=== PATIENT | female | born 1955 | race American Indian/Alaskan Native ===

== ENCOUNTER 2017-01-15 10:49 | Emergency (ER) | payer BC, OTHER ==
--- NOTE | 2017-01-15 11:09 | Emergency Department Report ---
Chief Complaint: Extremity Injury, Upper Stated Complaint: LFT ARM NUMBNESS Time Seen by Provider: 01/15/17 11:01 - HPI History of Present Illness: 61-year-old -[place] female with a past medical history of hypertension diabetes hypothyroidism and vitamin B12 deficiency comes in today for left arm pain that started 1 week ago and is progressively getting worse. 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 She reports that the left arm was a little weak this morning as if she couldn't pickle cutter anything with it. Patient denies any chest pain shortness of breathing nausea vomiting no fever no chills no headache no change in vision able to ambulate. - Exam Vital Signs: Vital Signs 01/15/17 10:50 Temperature 98 F Pulse Rate 110 H Respiratory 22 Rate Blood Pressure 154/68 O2 Sat by Pulse 98 Oximetry Physical Exam: Patient alert and oriented 3 no acute distress cardiac tachycardic, respiratory clear to auscultation, abdomen soft nontender nondistended bowel sounds throughout, neuro EOMI intact PERRLA intact accommodation intact, tongue protrusion with deviation to the right and left intact, gag reflex intact shrugging of the shoulder is intact, [id number] bilateral intact muscle strength 5 out of 5 throughout all extremities, Romberg negative or normal, there is no pronator drift. MSE screening note: Focused history and physical exam performed. Due to findings the following was ordered: Chest pain protocol implemented by triage nurse. Patient will be evaluated the main ER EKG has been done and reviewed by the MDs ED Disposition for MSE Condition: Stable
[2017-01-15 11:43] LABS: Anion Gap 23 mmol/L; BUN/Creatinine Ratio 22.14; Blood Urea Nitrogen 31 mg/dL (7-17); Calcium 9.2 mg/dL (8.4-10.2); Carbon Dioxide 22 mmol/L (22-30); Chloride 102.2 mmol/L (98-107); Glucose 233 mg/dL (65-100); Potassium 4.8 mmol/L (3.6-5.0); Sodium 142 mmol/L (137-145)
[2017-01-15 11:45] LABS: Hematocrit 32.1 % (30.3-42.9); Hemoglobin 10.3 gm/dl (10.1-14.3); Mean Corpuscular HGB Conc 32 % (30-34); Mean Corpuscular Hemoglobin 27 pg (28-32); Mean Corpuscular Volume 83 fl (79-97); Platelet Count 247 K/mm3 (140-440); Red Blood Count 3.87 M/mm3 (3.65-5.03); Red Cell Distribution Width 15.5 % (13.2-15.2); White Blood Count 7.6 K/mm3 (4.5-11.0)
[2017-01-15 22:35] VITALS: BP 151/72
--- NOTE | 2017-01-18 19:05 | ED Elopement Review ---
ED Pt Elopement review - Results review Lab results: Laboratory Tests 01/15/17 01/15/17 01/15/17 11:13 11:13 13:54 WBC 7.6 RBC 3.87 Hgb 10.3 Hct 32.1 MCV 83 MCH 27 L MCHC 32 RDW 15.5 H Plt Count 247 Lymph % (Auto) 20.3 Emmet % (Auto) 10.0 H Eos % (Auto) 0.0 Baso % (Auto) 0.0 Lymph # 1.5 Emmet # 0.8 Eos # 0.0 Baso # 0.0 Seg Neutrophils % 69.7 Seg Neutrophils # 5.3 Sodium 142 Potassium 4.8 Chloride 102.2 Carbon Dioxide 22 Anion Gap 23 BUN 31 H Creatinine 1.4 H Estimated GFR 46 BUN/Creatinine Ratio 22.14 Glucose 233 H Calcium 9.2 Troponin T < 0.010 < 0.010 01/15/17 17:19 WBC RBC Hgb Hct MCV MCH MCHC RDW Plt Count Lymph % (Auto) Emmet % (Auto) Eos % (Auto) Baso % (Auto) Lymph # Emmet # Eos # Baso # Seg Neutrophils % Seg Neutrophils # Sodium Potassium Chloride Carbon Dioxide Anion Gap BUN Creatinine Estimated GFR BUN/Creatinine Ratio Glucose Calcium Troponin T < 0.010 - Call Back decision Pt Call Back Decision: Pt to F/U with PMD
== END 2017-01-15 22:35 | disposition left against medical advice (07) ==
LOC: ED 10:49
DX: R20.0 Anesthesia of skin (principal); M79.602 Pain in left arm; Z53.21 Procedure and treatment not carried out due to patient leaving prior to being seen by health care provider
CPT/HCPCS: 36415; 80048; 84484; 85025; 93005; 93010

== ENCOUNTER 2017-09-30 10:11 | Outpatient (CLI) | payer BC ==
--- NOTE | 2017-09-30 11:03 | Ultrasound Report ---
Renal ultrasound: Left renal mass. The right renal length is 10.1 cm. The kidney is echogenically unremarkable. The left renal length is 10.5 cm. There is a focal increased area of echogenicity peripherally in the anterior lower left kidney measuring approximately 1 cm. There is no shadowing. This was not identified on prior examination in 2013. Imaging of the urinary bladder is unremarkable. Impression Nonspecific echo density in the peripheral left kidney. Consider correlation with CT scan.
== END 2017-09-30 10:12 | disposition home or self-care (01) ==
LOC: US 10:11
PROVIDERS: ATTEND Internal Medicine Cardiovascular Disease
DX: N28.89 Other specified disorders of kidney and ureter (principal)
CPT/HCPCS: 76770